=== PATIENT | male | born 1980 | race African-American/Black ===

== ENCOUNTER 2018-02-11 16:28 | Emergency (ER) | payer MEDICAID ==
[~2018-02-11] VITALS: Ht 167.6 cm; Wt 82.0 kg
[2018-02-11] MEDS ORDERED: ACETAMINOPHEN WITH CODEINE 300/30MG TABLET PO ONE (19:00)
[2018-02-11 20:10] VITALS: BP 132/84
== END 2018-02-11 20:15 | disposition home or self-care (01) ==
LOC: ER 16:28
DX: S90.31XA Contusion of right foot, initial encounter (principal); S90.01XA Contusion of right ankle, initial encounter; F17.200 Nicotine dependence, unspecified, uncomplicated; W10.9XXA Fall (on) (from) unspecified stairs and steps, initial encounter; Y93.89 Activity, other specified; Y92.89 Other specified places as the place of occurrence of the external cause; Y99.8 Other external cause status
CPT/HCPCS: 29515; 73610; 73630; 99284; Z7610

== ENCOUNTER 2024-01-27 21:45 | Emergency (ER) | payer MEDICAID, OTHER ==
[~2024-01-27] VITALS: Ht 180.3 cm; Wt 94.0 kg
[2024-01-27 22:15] VITALS: O2SAT 98
[2024-01-28] MEDS: HYDROCODONE/ACETAMINOPHEN 5/325MG TABLET PO ONE (02:25)
[2024-01-28] MEDS: KETOROLAC 30MG/ML VIAL IM ONE (02:25)
[2024-01-28] MEDS ORDERED: CYCL10TA21 MT (02:59)
[2024-01-28] MEDS ORDERED: NAPR-1176 MT (02:59)
[2024-01-28 03:17] VITALS: BP 140/99; PULSE 56; RESP 18; TEMP 97.9
== END 2024-01-28 03:18 | disposition home or self-care (01) ==
LOC: ER 21:45
DX: G89.29 Other chronic pain (principal); M54.50 Low back pain, unspecified; Z98.890 Other specified postprocedural states
CPT/HCPCS: 99283; 96372; J1885